=== PATIENT | female | born 1980 | race Caucasian/White ===

== ENCOUNTER → 2016-10-22 | Outpatient (CLI) | payer OTHER ==
[~2016-10-22] MED LIST: NORVASC10 MG PO; ZOCOR20 MG PO
== END | disposition home or self-care (01) ==
LOC: CBAR 09:35
DX: Z01.812 Encounter for preprocedural laboratory examination (principal); E66.01 Morbid (severe) obesity due to excess calories
CPT/HCPCS: 36415; 84443; 86677; G0463

== ENCOUNTER → 2016-11-12 | Outpatient (CLI) | payer OTHER ==
--- NOTE | ~2016-11-12 | CR63 ---
[facility] A Service of [facility] RADIOLOGY TEXT RESULTS PATIENT: CARLOS BRICE LOCATION: [facility] : 79 UNIT #: [id number] AGE: [address]: Adam León III, MD SEX: F ORDER DR: [id number] [facility] [address]. [place], [place] [address] [id number] O MR#: [id number] Acc #: [id number] NAME: CARLOS BRICE : 1980 SEX: F STUDY DATE/TIME: 11/12/2016 8:13 UNIT: [facility] ROOM: STUDY DESCRIPTION: CR Chest 2 View Attending Physician: Adam León III, M.D. Referring Physician: Adam León III, M.D. Ordering Physician: Adam León III, M.D. Primary Care Physician: Lawrence Duong M.D. MEDICAL IMAGING REPORT This report is preliminary unless electronic signature is present EXAM Chest 11/12/2016 HISTORY 36-year-old woman. Preop clearance for laparoscopic adjustable gastric band placement and possible paraesophageal hernia repair. Patient short of air with activity. Morbid obesity. COMPARISON Chest 12/24/2009. FINDINGS Two-view chest demonstrates normal stable cardiac size and configuration. Hilar structures and mediastinal contours are preserved. Bilateral lungs are expanded and clear. Large body habitus noted. IMPRESSION Negative chest. Large body habitus. Dictated by... Cecilio Dyer M.D. THIS IS AN ELECTRONICALLY VERIFIED REPORT Cecilio Dyer M.D. at 11/12/2016 1:56 PM ISAIAH/anshul TD: 11/12/2016 12:09 JOB #: [id number] MEDICAL IMAGING REPORT Page 1 of 1 COPY
--- NOTE | ~2016-11-12 | CR97 ---
[facility] A Service of [facility] RADIOLOGY TEXT RESULTS PATIENT: CARLOS BRICE LOCATION: [facility] : 79 UNIT #: [id number] AGE: [address]: Adam León III, MD SEX: F ORDER DR: [id number] [place] [id number] [facility]. [place], [place] [address] [id number] O MR#: [id number] Acc #: [id number] NAME: CARLOS BRICE : 1980 SEX: F STUDY DATE/TIME: 11/12/2016 12:50 UNIT: [facility] ROOM: STUDY DESCRIPTION: CR Esophagram Attending Physician: Adam León III, M.D. Referring Physician: Adam León III, M.D. Ordering Physician: Adam León III, M.D. Primary Care Physician: Lawrence Duong M.D. MEDICAL IMAGING REPORT This report is preliminary unless electronic signature is present EXAM Esophagram 11/12/2016 INDICATIONS A 36-year-old female presenting for preop evaluation for lap-band placement and possible paraesophageal hernia repair. Shortness of air with activity. Symptoms began today. History of cervical cancer. History of prior lap-band surgery in November 2015. TECHNIQUE Spot fluoroscopic views of the esophagus were obtained in various projections after the patient ingested gas crystals and thick and thin liquid barium. No comparisons. FINDINGS The esophagus demonstrates an unremarkable primary stripping wave. No significant secondary or tertiary contractions identified. No focal stricture, esophageal mass or mucosal abnormality. No distinct hiatal hernia. Notes indicate 53 images from the procedure were saved to the [employer] system. One minute of fluoroscopy time used in the procedure. IMPRESSION 1. Essentially negative esophagram. 2. Notes indicate 53 images from the procedure were saved to the [employer] system. One minute of fluoroscopy time used in the case. Dictated by... Uirah Bailey M.D. THIS IS AN ELECTRONICALLY VERIFIED REPORT [facility] A Service of [facility] RADIOLOGY TEXT RESULTS PATIENT: CARLOS BRICE LOCATION: [facility] : 79 UNIT #: [id number] AGE: [address]: Adam León III, MD SEX: F ORDER DR: Uriah Bailey M.D. at 11/15/2016 3:27 PM Zane TD: 11/12/2016 21:53 JOB #: [id number] MEDICAL IMAGING REPORT Page 1 of 1 COPY
--- NOTE | ~2016-11-12 | EKG ---
PATIENT: CARLOS BRICE UNIT #: [id number] Ventricular Rate: 76 BPM Atrial Rate: 76 BPM P-R Interval: 174 ms QRS Duration: 100 ms Q-T Interval: 376 ms QTC Calculation(Bezet): 423 ms P Springer: 75 degrees Calculated R Springer: 12 degrees Calculated T Springer: 25 degrees Diagnosis Line: Normal sinus rhythm Diagnosis Line: Cannot rule out Septal infarct , age undetermined Diagnosis Line: Borderline ECG Diagnosis Line: No previous ECGs available Diagnosis Line: Confirmed by CARLINE CORTES MD ([id number]) on 11/13/2016 Diagnosis Line: 8:34:04 AM INTERPRETING MD: SEBASTIAN KEBEDE
[2016-11-12 09:51] LABS: HEMATOCRIT 42.5 % (35.0-45.0); HEMOGLOBIN 13.9 gm/dL (12.0-16.0); MEAN CELL VOLUME 79.3 FL (83-96); MEAN CORPUSCULAR HEMOGLOBIN 25.9 PG (28-34); MEAN CORPUSCULAR HGB CONC 32.6 g/dL (30-36); MEAN PLATELET VOLUME 8.5 FL (6.5-11.5); RED BLOOD COUNT 5.37 X10e (3.90-5.30); RED CELL DISTRIBUTION WIDTH 16.1 % (11.0-15.5); WHITE BLOOD COUNT 12.4 X10e3 (4.0-10.5)
[2016-11-12 10:40] LABS: ALBUMIN SERUM 4.5 g/dL (3.5-5.0); BILIRUBIN,TOTAL 0.6 mg/dL (0.2-2.0); BUN/CREATININE RATIO 14.28; CALCIUM SERUM 9.4 mg/dL (8.4-10.2); CREATININE SERUM 0.7 mg/dL (0.6-1.4); GLOM FILT RATE Estimated 110.7 mL/min (>60); POTASSIUM 4.2 mmol/L (3.5-5.1); PROTEIN TOTAL SERUM 7.4 g/dL (6.0-8.3)
== END | disposition home or self-care (01) ==
LOC: CAMB 07:40 → CRAD 07:40 → CAMB 10:00
PROVIDERS: Surgery
DX: Z01.818 Encounter for other preprocedural examination (principal); E66.01 Morbid (severe) obesity due to excess calories
CPT/HCPCS: 36415; 71020; 74220; 80053; 80061; 84443; 85027; 93005

== ENCOUNTER → 2016-11-24 | Day surgery (SDC) | payer OTHER ==
--- NOTE | ~2016-11-24 | CR7 ---
[facility] A Service of [facility] RADIOLOGY TEXT RESULTS PATIENT: CARLOS BRICE LOCATION: [facility] : 79 UNIT #: [id number] AGE: [address]: Adam León III, MD SEX: F ORDER DR: [id number] [facility] [address]. [place], [place] [address] [id number] O MR#: [id number] Acc #: [id number] NAME: CARLOS BRICE : 1980 SEX: F STUDY DATE/TIME: 11/24/2016 8:21 UNIT: [facility] ROOM: STUDY DESCRIPTION: CR Abdomen Single AP View Attending Physician: Adam León III, M.D. Ordering Physician: Adam León III, M.D. Primary Care Physician: Lawrence Duong M.D. MEDICAL IMAGING REPORT This report is preliminary unless electronic signature is present EXAM Abdomen INDICATION Postop Lap-Band placement. Abdominal pain. Evaluate position of device. FINDINGS A single AP view of the abdomen was obtained. Some of the right abdomen is excluded. The Lap-Band ring has a angle of 51 degrees off of the vertical through the spine. The bowel gas pattern is normal. IMPRESSION This study does not include the entire abdomen but does include the gastric band device which has a 51 degree angle off of the vertical through the spine. The visible bowel gas pattern is normal. Dictated by... Edi Valentine M.D. THIS IS AN ELECTRONICALLY VERIFIED REPORT Edi Valentine M.D. at 11/24/2016 1:01 PM KIMBERLYN/bret TD: 11/24/2016 10:00 JOB #: [id number] MEDICAL IMAGING REPORT Page 1 of 1 COPY
--- NOTE | ~2016-11-24 | OR ---
Unit #: [id number] #: [id number] Patient: CARLOS BRICE [id number] [facility] [address]. [place], [place] [address] [id number] O MR#: [id number] NAME: CARLOS BRICE ROOM: Date of Procedure: 11/24/2016 Admission Date: 11/24/2016 Surgeon: Adam León III, M.D. : 1980 Attending Physician: Adam León III, M.D. Primary Care Physician: Lawrence Duong M.D. OPERATIVE REPORT PREOPERATIVE DIAGNOSIS Chronic morbid obesity. POSTOPERATIVE DIAGNOSIS Chronic morbid obesity. SECONDARY DIAGNOSIS Anterior paraesophageal hernia. PROCEDURE PERFORMED Laparoscopic adjustable gastric banding (AP standard with regular port) and laparoscopic paraesophageal hernia repair. PRICING MANAGER Dr. Nikita Durán. SPECIMENS None. COMPLICATIONS None apparent. ESTIMATED BLOOD LOSS Minimal. ANESTHESIA General endotracheal tube anesthesia. INDICATIONS FOR PROCEDURE This is a 36-year-old lady, who has chronic morbid obesity with a BMI of 41 and associated comorbidities of hypertension. She has been through the bariatric program at [facility]. She understands the risks and benefits of the procedure. DESCRIPTION OF PROCEDURE After consent was obtained, including the risks and benefits of slippage, erosion, port dysfunction, and possible failure of weight loss due to noncompliance, the patient was taken to the operating room and placed in the supine position. General anesthetic was administered and the abdomen was prepped and draped in standard surgical fashion. I began by making a 2 cm incision just above and to the left of the Unit #: [id number] #: [id number] Patient: CARLOS BRICE umbilicus. I used a Visiport to enter the peritoneal cavity without any difficulty. C02 pneumoperitoneum was then established. Next, I placed a 5 mm port in the right upper quadrant, a 5 mm Yamila liver retractor in the subxiphoid region to provide exposure of the gastroesophageal junction. Next, a 10 mm port was placed in the left upper quadrant and a 5 mm port was placed in the left lateral subcostal region. I began by performing an examination of the GE junction to evaluate for a hiatal hernia. We then scored the peritoneal attachments overlying the angle of His. I then opened up the clear space in the gastrohepatic ligament, and then using 2 blunt graspers, I identified the small fat pad crossing over the right crura. I swept the fat anterior to the crura off the crura and using the pars flaccida, I created a retrogastric tunnel where the blunt grasper exited at the angle of His. Once I had made this tunnel safely, I then inserted an Allergan AP band into the abdominal cavity. This adjustable gastric band was then place around the upper part of the stomach and fastened and buckled anteriorly. We then tacked the lateral fundus over the band to the proximal pouch with 2 interrupted 0 Ethibond sutures. I then used a third stitch to imbricate the excess anterior stomach by going from the lesser curvature up towards where the last stitch was placed. We then had excellent hemostasis. I removed the Yamila liver retractor. We then removed the port tubing through the initial port incision. The rest of the ports were removed, and the pneumoperitoneum was released. I then left a small tail on the tubing. We then attached the port to the excess band tubing. We placed a piece of Prolene mesh along the back side of the port and used a Prolene stitch to anchor this mesh in place. We then trimmed the excess mesh so that just a small footprint of mesh was in place behind the port. I then inserted the tubing back into the abdominal cavity, and we placed the port into a small pocket that was made just inferior to where our initial port incision was made. The mesh was in direct contact with the fascia, and this will scar in place to hold the port in place. We then injected all the port sites with 0.25% plain Marcaine, and I reapproximated the skin edges with interrupted 4-0 Vicryl subcuticular sutures. Steri-strips were then applied. The patient tolerated the procedure without any problems and returned to the recovery room in stable condition. ADDENDUM After exposure of the GE junction, the patient was noted to have a small to medium size anterior paraesophageal hernia. I scored the phrenoesophageal ligament, reduced the hernia defect including the hernia sac and after identifying both the right and left crura, I reapproximated the defect with an interrupted 0 Ethibond [id number] suture. I then proceeded with the case as listed above. Dictated by... Adam León III, M.D. VCL/brenda TD: 11/25/2016 16:26 JOB #: [id number] Unit #: [id number] #: [id number] Patient: CARLOS BRICE OPERATIVE REPORT Page 1 of 1 X Adam León III, MD PROCEDURE OPERATIVE NOTE
== END | disposition home or self-care (01) ==
LOC: CSUR 06:15
DX: E66.01 Morbid (severe) obesity due to excess calories (principal); I10 Essential (primary) hypertension; E78.5 Hyperlipidemia, unspecified; J30.9 Allergic rhinitis, unspecified; E78.00 Pure hypercholesterolemia, unspecified; Z68.41 Body mass index [BMI] 40.0-44.9, adult; Z80.3 Family history of malignant neoplasm of breast; Z87.891 Personal history of nicotine dependence; Z88.0 Allergy status to penicillin; Z98.51 Tubal ligation status; Z90.49 Acquired absence of other specified parts of digestive tract; Z90.710 Acquired absence of both cervix and uterus; Z79.899 Other long term (current) drug therapy
CPT/HCPCS: 74000; C1781; J0330; J1100; J1650; J1885; J2250; J2405; J2710; J3010; J3370; L8699